=== PATIENT | male | born 1955 | race Caucasian/White ===

== ENCOUNTER 2021-01-14 09:26 | Inpatient (IN) | payer OTHER, BC ==
[2021-01-14 10:42] LABS: BASO % 1.1 % (0-2.0); EOS % 0.6 % (0-4.5); HEMATOCRIT 32.5 % (35.4-49); LYMPH % 7.6 % (8-40); MCHC 33.9 g/dl (32.0-35.9); MEAN CELL VOLUME 82.7 fl (80-96); MEAN PLT VOLUME 8.7 fl (7.5-11.1); MONO % 7.2 % (3.8-10.2); NEUT % 83.5 % (42.8-82.8); PLATELET COUNT 453 10^3/uL (134-434); RBC 3.92 M/mm3 (4.00-5.60); RDW 15.5 % (11.9-15.9); WHITE BLOOD COUNT 10.9 K/mm3 (4.0-10.0)
[2021-01-14 10:56] LABS: INR 1.08 (0.83-1.09); PROTHROMBIN TIME (PATIENT) 12.7 SEC (9.7-13.0)
[2021-01-14 10:59] LABS: CHLORIDE 101 mmol/L (98-107); SODIUM 135 mmol/L (136-145)
[2021-01-14 11:00] LABS: CALCIUM 8.9 mg/dL (8.5-10.1)
[2021-01-14 11:01] LABS: ALBUMIN 3.5 g/dl (3.4-5.0); ANION GAP 13 MMOL/L (8-16); BLOOD UREA NITROGEN 96.5 mg/dL (7-18); CO2 21 mmol/L (21-32); GLUCOSE,RANDOM 129 mg/dL (74-106)
[2021-01-14 11:04] LABS: SGOT/AST 8 U/L (15-37); SGPT/ALT 14 U/L (13-61)
[2021-01-14 11:05] LABS: BILIRUBIN,TOTAL 0.3 mg/dL (0.2-1); TOT PROT 8.1 g/dl (6.4-8.2)
[2021-01-14 11:07] LABS: ALK PHOS 85 U/L (45-117)
[2021-01-14 11:09] LABS: N-TERMINAL BNP 193.2 pg/ml (5-125)
[2021-01-14 11:11] LABS: CREATININE 13.4 mg/dL (0.55-1.3)
[2021-01-14 11:27] LABS: EPI CELLS 15 /uL (0-25.1); HYALINE CASTS 1 /uL (0-3.1); URINE APPEARANCE CLEAR; URINE BACTERIA 13 /uL (0-1359); URINE BILIRUBIN NEGATIVE (NEGATIVE); URINE COLOR YELLOW; URINE GLUCOSE (UA) NEGATIVE (NEGATIVE); URINE KETONE NEGATIVE (NEGATIVE); URINE LEUK ESTERASE 1+ (NEGATIVE); URINE NITRITE NEGATIVE (NEGATIVE); URINE PROTEIN 2+ (NEGATIVE); URINE RBC 37 /uL (0-23.9); URINE UROBILINOGEN 0.2 mg/dL (0.2-1.0); URINE WBC 108 /uL (0-25.8)
[2021-01-14] MEDS ORDERED: DOXYCYCLINE INJECTION 100 MG in DEXTROSE 5%-WATER 100 ML IVPB ONE (11:58)
[2021-01-14] MEDS ORDERED: DOXYCYCLINE HYCLATE 100 MG VIAL ONE (12:16)
[2021-01-14] MEDS: SODIUM CHLORIDE 500 ML IV SCH ×2 (14:15→22:18)
[2021-01-14] MEDS ORDERED: MIDAZOLAM HCL 2 MG/2 ML SINGLE DOSE VIAL IVPUSH ONE ×2 (14:20→14:40)
[2021-01-14] MEDS: ACETAMINOPHEN 1000 MG/100 ML VIAL IVPB PRN ×2 (17:54→23:56)
[2021-01-15] MEDS: ACETAMINOPHEN 1000 MG/100 ML VIAL IVPB PRN ×3 (06:03→19:56)
[2021-01-15] MEDS ORDERED: SODIUM CHLORIDE 0.45% 1,000 ML IV SCH (07:30)
[2021-01-15 09:22] LABS: CALCIUM 8.9 mg/dL (8.5-10.1)
[2021-01-15 09:23] LABS: ALBUMIN 3.1 g/dl (3.4-5.0)
[2021-01-15 09:26] LABS: CREATININE 5.1 mg/dL (0.55-1.3)
[2021-01-15 09:27] LABS: BILIRUBIN,TOTAL 0.4 mg/dL (0.2-1); TOT PROT 7.2 g/dl (6.4-8.2)
[2021-01-15] MEDS ORDERED: amLODIPine BESYLATE 5 MG TABLET (FP) PO SCH (10:15)
[2021-01-15] MEDS: SODIUM CHLORIDE 500 ML IV SCH (15:32)
[2021-01-16] MEDS: ACETAMINOPHEN 1000 MG/100 ML VIAL IVPB PRN ×2 (06:13→18:29)
[2021-01-16 09:08] LABS: HEMATOCRIT 33.4 % (35.4-49); HEMOGLOBIN 11.3 GM/dL (11.7-16.9); MCH 27.9 pg (25.7-33.7); MCHC 33.7 g/dl (32.0-35.9); MEAN CELL VOLUME 82.9 fl (80-96); MEAN PLT VOLUME 8.8 fl (7.5-11.1); PLATELET COUNT 497 10^3/uL (134-434); RBC 4.03 M/mm3 (4.00-5.60); RDW 15.4 % (11.9-15.9); WHITE BLOOD COUNT 11.6 K/mm3 (4.0-10.0)
[2021-01-16] MEDS ORDERED: DEXTROSE 5%-0.45% SALINE 1,000 ML IV SCH (09:30)
[2021-01-16 10:00] LABS: ALBUMIN 3.2 g/dl (3.4-5.0); CALCIUM 9.3 mg/dL (8.5-10.1)
[2021-01-16 10:04] LABS: CREATININE 2.3 mg/dL (0.55-1.3)
[2021-01-16 10:05] LABS: BILIRUBIN,TOTAL 0.4 mg/dL (0.2-1); TOT PROT 7.5 g/dl (6.4-8.2)
[2021-01-16 10:09] LABS: BLOOD UREA NITROGEN 34.7 mg/dL (7-18)
[2021-01-16] MEDS: amLODIPine BESYLATE 10 MG TABLET (FP) PO SCH (10:09)
[2021-01-16] MEDS: ENOXAPARIN NA (PORCINE) 40 MG/0.4 ML DISP.SYRIN SQ SCH (12:33)
[2021-01-16 15:29] VITALS: BMI 33.2
[2021-01-16] MEDS ORDERED: SODIUM CHLORIDE 0.45% 1,000 ML IV SCH (15:30)
[2021-01-16] MEDS ORDERED: ACETAMINOPHEN 1000 MG/100 ML VIAL IVPB ONE (22:56)
[2021-01-17 09:13] LABS: HEMATOCRIT 33.5 % (35.4-49); HEMOGLOBIN 11.5 GM/dL (11.7-16.9); MCH 28.4 pg (25.7-33.7); MCHC 34.2 g/dl (32.0-35.9); MEAN CELL VOLUME 83.1 fl (80-96); MEAN PLT VOLUME 8.7 fl (7.5-11.1); PLATELET COUNT 511 10^3/uL (134-434); RBC 4.03 M/mm3 (4.00-5.60); RDW 15.2 % (11.9-15.9); WHITE BLOOD COUNT 10.7 K/mm3 (4.0-10.0)
[2021-01-17 09:49] LABS: CALCIUM 9.3 mg/dL (8.5-10.1)
[2021-01-17 09:50] LABS: ALBUMIN 3.1 g/dl (3.4-5.0); BLOOD UREA NITROGEN 27.2 mg/dL (7-18)
[2021-01-17 09:52] LABS: CREATININE 1.6 mg/dL (0.55-1.3)
[2021-01-17 09:54] LABS: BILIRUBIN,TOTAL 0.6 mg/dL (0.2-1); TOT PROT 7.4 g/dl (6.4-8.2)
[2021-01-17] MEDS: ENOXAPARIN NA (PORCINE) 40 MG/0.4 ML DISP.SYRIN SQ SCH (10:49)
[2021-01-17] MEDS: amLODIPine BESYLATE 10 MG TABLET (FP) PO SCH (10:49)
[2021-01-17] MEDS: DEXTROSE 5%-0.45% SALINE 1,000 ML IV SCH (14:13)
[2021-01-17] MEDS ORDERED: ACETAMINOPHEN 1000 MG/100 ML VIAL IVPB ONE (23:10)
[2021-01-18] MEDS: DEXTROSE 5%-0.45% SALINE 1,000 ML IV SCH ×3 (05:48→22:54)
[2021-01-18] MEDS: ENOXAPARIN NA (PORCINE) 40 MG/0.4 ML DISP.SYRIN SQ SCH (11:48)
[2021-01-18] MEDS: amLODIPine BESYLATE 10 MG TABLET (FP) PO SCH (11:48)
[2021-01-18] MEDS ORDERED: ACETAMINOPHEN 1000 MG/100 ML VIAL IVPB ONE (12:30)
[2021-01-18 16:57] LABS: ALBUMIN 2.8 g/dl (3.4-5.0); BLOOD UREA NITROGEN 23.1 mg/dL (7-18); CALCIUM 9.6 mg/dL (8.5-10.1); MAGNESIUM 1.2 mg/dL (1.8-2.4)
[2021-01-18 17:00] LABS: CREATININE 1.5 mg/dL (0.55-1.3); PHOSPHOROUS 2.9 mg/dL (2.5-4.9)
[2021-01-18 17:01] LABS: BILIRUBIN,TOTAL 0.5 mg/dL (0.2-1)
[2021-01-18] MEDS ORDERED: ACETAMINOPHEN 1000 MG/100 ML VIAL IVPB PRN (20:59)
[2021-01-18 23:13] VITALS: BP 134/83; PULSE 115; TEMP 98.4
[2021-01-19] MEDS ORDERED: traMADol HCL 50 MG TABLET PO ONE (01:09)
== END 2021-01-19 03:45 | disposition short-term general hospital (02) | DRG 375 ==
LOC: JER 09:26 → JERBED 12:33 → J5S 18:32
PROVIDERS: ADMIT Internal Medicine; ATTEND Internal Medicine
PROC: 0T9030Z Drainage of Right Kidney with Drainage Device, Percutaneous Approach (ICD-10-PCS; principal; 2021-01-14)
DX: C20 Malignant neoplasm of rectum (principal); N13.2 Hydronephrosis with renal and ureteral calculous obstruction; C18.9 Malignant neoplasm of colon, unspecified; K56.609 Unspecified intestinal obstruction, unspecified as to partial versus complete obstruction; N17.9 Acute kidney failure, unspecified; I10 Essential (primary) hypertension; N40.1 Benign prostatic hyperplasia with lower urinary tract symptoms; R33.9 Retention of urine, unspecified; R31.0 Gross hematuria; E66.9 Obesity, unspecified; Z68.33 Body mass index [BMI] 33.0-33.9, adult
CPT/HCPCS: 36415; 50432; 74176-TC; 80053; 81003; 83605; 83735; 83880; 84100; 84484; 85025; 85027; 85610; 87070; 87075; 87086; 87102; 87186; 87205; 87210; 88108; 88305-TC; 93005; 93010; 93971-TC; 99285-25; A4358; C1729; C1769; C9803; J0131; U0003; U0005